=== PATIENT | male | born 1995 | race African-American/Black ===

== ENCOUNTER 2017-05-15 20:31 | Emergency (ER) | payer SELFPAY ==
[~2017-05-15] VITALS: Ht 188 cm; Wt 77.0 kg
[~2017-05-15 20:31] MED LIST: NRSS SQ; TRIA.1%T TOP
[2017-05-15 20:40] VITALS: BP 157/93; PULSE 91; RESP 16; TEMP 98.3; O2SAT 98
[2017-05-15] MEDS ORDERED: SODIUM CHLOR 0.9% 1000 ML INJ 1,000 ML IV ONE (23:45)
--- NOTE | 2017-05-15 23:45 | PD ---
HPI Chief Complaint: Diabetic Time Seen by Provider: 23:37 Travel History International Travel<30 days: No Contact w/Intl Traveler<30days: No Traveled to known affect area: No History of Present Illness HPI 21-year-old male complains of elevated blood sugar. Patient has history diabetes and on Novolin. Patient states that his blood sugar been running 300- 500 range for the past 4 days. Patient denies any headache. Patient denies any chest pain or shortness of breath. Patient denies abdominal pain. Patient denies any nausea vomiting diarrhea. Patient denies any fever chills. PFSH Past Medical History Diabetes: Yes Patient Takes Glucophage: No Diminished Hearing: No Hypertension: Yes Influenza Vaccination: No Past Surgical History Surgical History: No Previous Surgery Social History Alcohol Use: No Tobacco Use: No Substance Use: No Allergies-Medications (Allergen,Severity, Reaction): Coded Allergies: No Known Allergies (Unverified , 05/16/15) Reported Meds & Prescriptions Reported Meds & Active Scripts Active Aristocort (Triamcinolone Acetonide) 0.1 % Cr 0.1 % TOP BID Reported Novolin Regular Insulin Supplemental Scale (Insulin Human Regular) U 100 Inj Unknown Dose SQ 5 TIMES A DAY Review of Systems General / Constitutional: No: Fever Eyes: No: Visual changes HENT: No: Headaches Cardiovascular: No: Chest Pain or Discomfort Respiratory: No: Shortness of Breath Gastrointestinal: No: Abdominal Pain Genitourinary: No: Dysuria Musculoskeletal: No: Pain Skin: No Rash Neurologic: No: Weakness Psychiatric: No: Depression Endocrine: No: Polydipsia Hematologic/Lymphatic: No: Easy Bruising Physical Exam Narrative GENERAL: Well-nourished, well-developed patient. SKIN: Focused skin assessment warm/dry. HEAD: Normocephalic. EYES: No scleral icterus. No injection or drainage. NECK: Supple, trachea midline. No JVD or lymphadenopathy. CARDIOVASCULAR: Regular rate and rhythm without murmurs, gallops, or rubs. RESPIRATORY: Breath sounds equal bilaterally. No accessory muscle use. GASTROINTESTINAL: Abdomen soft, non-tender, nondistended. MUSCULOSKELETAL: No cyanosis, or edema. BACK: Nontender without obvious deformity. No CVA tenderness. Neurologic exam normal. Data Data Last Documented VS Vital Signs Date Time Temp Pulse Resp B/P Pulse Ox O2 Delivery O2 Flow Rate FiO2 05/15/17 23:28 88 16 100 Room Air 05/15/17 20:40 98.3 157/93 Orders Complete Blood Count With Diff (05/15/17 23:45) Basic Metabolic Panel (Bmp) (05/15/17 23:45) Beta Hydroxybutyrate (Acetone) (05/15/17 23:45) Iv Access Insert/Monitor (05/15/17 23:45) Sodium Chlor 0.9% 1000 Ml Inj (Ns 1000 M (05/15/17 23:45) Labs Laboratory Tests Test 05/15/17 23:45 White Blood Count 6.7 TH/MM3 Red Blood Count 4.86 MIL/MM3 Hemoglobin 14.9 GM/DL Hematocrit 42.8 % Mean Corpuscular Volume 88.2 FL Mean Corpuscular Hemoglobin 30.6 PG Mean Corpuscular Hemoglobin 34.7 % Concent Red Cell Distribution Width 12.4 % Platelet Count 225 TH/MM3 Mean Platelet Volume 8.8 FL Neutrophils (%) (Auto) 50.4 % Lymphocytes (%) (Auto) 39.4 % Monocytes (%) (Auto) 6.9 % Eosinophils (%) (Auto) 2.1 % Basophils (%) (Auto) 1.2 % Neutrophils # (Auto) 3.4 TH/MM3 Lymphocytes # (Auto) 2.6 TH/MM3 Monocytes # (Auto) 0.5 TH/MM3 Eosinophils # (Auto) 0.1 TH/MM3 Basophils # (Auto) 0.1 TH/MM3 CBC Comment DIFF FINAL Differential Comment Sodium Level 139 MEQ/L Potassium Level 3.8 MEQ/L Chloride Level 103 MEQ/L Carbon Dioxide Level 27.5 MEQ/L Anion Gap 9 MEQ/L Blood Urea Nitrogen 13 MG/DL Creatinine 1.08 MG/DL Estimat Glomerular Filtration 105 ML/MIN Rate Random Glucose 282 MG/DL Calcium Level 9.3 MG/DL B-Hydroxybutyrate 0.19 MMOL/L MDM Medical Decision Making Medical Screen Exam Complete: Yes Emergency Medical Condition: Yes Interpretation(s) 12:35 AM. Blood sugar 282. Differential Diagnosis Differential diagnosis including hyperglycemia, DKA. Narrative Course 21-year-old male with history of diabetes and elevated blood sugar. Diagnosis Primary Impression: Hyperglycemia Patient Instructions: General Instructions Additional Instructions: Take insulin as directed. Follow local physician. Accu-Chek blood sugar daily. Increase insulin dosage if elevated blood sugar. Med/Other Pt SpecificInfo: Prescription(s) given Scripts Insulin Glargine Inj (Lantus Inj)1,000 Unit/10 Ml Vial10 Units SQ HS #10 VIAL Ref 0 Prov:Kaveh Gaitan MD 05/16/17 Disposition: 01 DISCHARGE HOME Condition: Stable Kaveh Gaitan MD May 15, 2017 23:44
[2017-05-15 23:57] LABS: AUTOMATED NEUTROPHIL # 3.4 TH/MM3 (1.8-7.7); BASOPHIL # 0.1 TH/MM3 (0-0.2); BASOPHIL % 1.2 % (0.0-2.0); EOSINOPHIL # 0.1 TH/MM3 (0-0.4); EOSINOPHIL % 2.1 % (0.0-4.0); HEMATOCRIT 42.8 % (39.0-51.0); HEMO FLAGS DIFF FINAL; LYMPH % 39.4 % (9.0-44.0); LYMPHOCYTE # 2.6 TH/MM3 (1.0-4.8); MEAN CELL VOLUME 88.2 FL (80.0-100.0); MEAN CORPUSCULAR HEMOGLOBIN 30.6 PG (27.0-34.0); MEAN CORPUSCULAR HGB CONC 34.7 % (32.0-36.0); MONO % 6.9 % (0.0-8.0); NEUT % 50.4 % (16.0-70.0); PLATELET COUNT 225 TH/MM3 (150-450); RED BLOOD COUNT 4.86 MIL/MM3 (4.50-5.90); RED CELL DISTRIBUTION WIDTH 12.4 % (11.6-17.2); WHITE BLOOD COUNT 6.7 TH/MM3 (4.0-11.0)
[2017-05-16 00:22] LABS: BETA-HYDROXYBUTYRATE 0.19 MMOL/L (0.00-0.39)
[2017-05-16 00:24] LABS: BICARBONATE 27.5 MEQ/L (21.0-32.0); POTASSIUM 3.8 MEQ/L (3.5-5.1)
[2017-05-16] MEDS ORDERED: LANTUS2P SQ (00:37)
== END 2017-05-16 01:04 | disposition home or self-care (01) ==
LOC: NEPC 20:31
DX: E11.65 Type 2 diabetes mellitus with hyperglycemia (principal); Z79.4 Long term (current) use of insulin
CPT/HCPCS: 80048; 82010; 85025; 96360; 99284; J7030